=== PATIENT | female | born 1975 | race Caucasian/White ===

== ENCOUNTER → 2022-01-25 14:48 | Outpatient (CLI) | payer BC, SELFPAY ==
--- NOTE | ~2022-01-25 | US_ITS ---
EXAMINATION: US venous doppler [facility] DATE: 01/25/2022 15:10 INDICATION: Left lower limb pain TECHNIQUE: Ortiz scale images without and with compression and Doppler images of the left lower extrem ity veins were obtained. COMPARISON: None FINDINGS: The left common femoral vein, profunda femoral vein, femoral vein, popliteal vein, peroneal trunk, posterior tibial veins, and greater saphenous vein are patent. IMPRESSION: 1. Patent left lower extremity veins. No evidence of deep venous thrombosis. Reviewed, dictated and finalized at location B.
--- NOTE | ~2022-01-25 | XR_ITS ---
EXAMINATION: XR tibia fibula LT 2V DATE: 01/25/2022 15:13 INDICATION: Left lower leg pain and numbness. TECHNIQUE: 2 views of left tibia and fibula were obtained. COMPARISON: None. FINDINGS: Bone alignment is normal. No fracture. Joint spaces are well maintained. IMPRESSION: 1. Normal left tibia and fibula. Reviewed, dictated and finalized at location A.
== END ==
PROVIDERS: PCP Physician Assistant; Visit Provider Physician Assistant
DX: M79.605 Pain in left leg (principal)
CPT/HCPCS: 73590; 93971

== ENCOUNTER 2023-08-27 07:59 | Outpatient (CLI) | payer BC, SELFPAY ==
--- NOTE | 2023-08-27 | ECG_ITS ---
SEE SCANNED COPY FOR CONFIRMED REPORT MTDD
== END 2023-08-27 08:00 | disposition home or self-care (01) ==
LOC: ANHIMG 08:04 → ANHCARD 08:04
PROVIDERS: PCP Physician Assistant; Visit Provider Physician Assistant
DX: R00.1 Bradycardia, unspecified (principal)
CPT/HCPCS: 93005